=== PATIENT | female | born 1985 | race African-American/Black ===

== ENCOUNTER 2016-11-19 11:04 | Emergency (ER) | payer OTHER ==
[~2016-11-19] VITALS: Ht 167.6 cm; Wt 81.7 kg
[2016-11-19] MEDS ORDERED: TESSALON PERLE100 MG PO (12:29)
[2016-11-19 12:49] VITALS: BP 132/81
== END 2016-11-19 12:51 | disposition home or self-care (01) ==
LOC: ER 11:04
DX: J40 Bronchitis, not specified as acute or chronic (principal); F17.210 Nicotine dependence, cigarettes, uncomplicated; F10.99 Alcohol use, unspecified with unspecified alcohol-induced disorder

== ENCOUNTER 2017-03-21 21:35 | Emergency (ER) | payer OTHER ==
[~2017-03-21] VITALS: Ht 165.1 cm; Wt 86.2 kg
[~2017-03-21 21:35] MED LIST: TESSALON PERLE100 MG PO
== END 2017-03-21 23:25 | disposition home or self-care (01) ==
LOC: ER 21:35
DX: J06.9 Acute upper respiratory infection, unspecified (principal); J30.2 Other seasonal allergic rhinitis; J02.9 Acute pharyngitis, unspecified; F17.210 Nicotine dependence, cigarettes, uncomplicated

== ENCOUNTER 2017-04-25 23:40 | Emergency (ER) | payer OTHER ==
[~2017-04-25] VITALS: Ht 170.2 cm; Wt 86.2 kg
== END 2017-04-26 00:30 | disposition left against medical advice (07) ==
LOC: ER 23:40
DX: Z53.21 Procedure and treatment not carried out due to patient leaving prior to being seen by health care provider (principal)